=== PATIENT | male | born 1985 | race Asian ===

== ENCOUNTER 2024-10-21 02:45 | Inpatient (IN) | payer MEDICAID, OTHER ==
[~2024-10-21] VITALS: Ht 180.3 cm; Wt 91.7 kg
[~2024-10-21 02:45] MED LIST: DIVA-153 PO; PARO10TA89 PO; ROPI0.2535 PO; TRAZ-252 PO
[2024-10-21 03:27] LABS: EOSINOPHILS % (AUTO) 2.3 % (1.0-6.0); LYMPHOCYTES # (AUTO) 2.3 K/uL (1.0-4.8); LYMPHOCYTES % (AUTO) 21.5 % (22.0-44.0); MEAN CORPUSCULAR HEMOGLOBIN 25.8 pg (26.0-34.0); MEAN CORPUSCULAR HGB CONC 32.6 G/dL (31.0-37.0); MEAN CORPUSCULAR VOLUME 79 fL (80-100); MONOCYTES # (AUTO) 1.1 K/uL (0.1-1.0); MONOCYTES % (AUTO) 9.8 % (2.0-9.0); NEUTROPHILS # (AUTO) 7.1 K/uL (1.8-7.7); NEUTROPHILS % (AUTO) 65.4 % (40.0-70.0); PLATELET COUNT (AUTO) 286 K/uL (150-450); RED BLOOD CELL COUNT(AUTO) 5.43 MIL/uL (4.50-5.90); RED CELL DISTRIBUTION WIDTH 13.8 % (11.5-14.5); WHITE BLOOD COUNT (AUTO) 10.8 K/uL (4.5-11.0)
[2024-10-21 03:29] LABS: ANION GAP 8 mmol/L (8-16); CALCIUM, TOTAL 7.9 mg/dL (8.8-10.5); CARBON DIOXIDE 28 mmol/L (22-29); CHLORIDE 106 mmol/L (98-107); CREATININE 2.69 mg/dL (0.60-1.30); GLOMERULAR FILTR. RATE CALC 27 mL/min (>60); GLUCOSE,RANDOM 86 mg/dL (70-110); POTASSIUM 3.7 mmol/L (3.5-5.1); SODIUM SERUM 142 mmol/L (136-145); UREA NITROGEN, BLOOD 37 mg/dL (7-18)
[2024-10-21 03:39] LABS: TROPONIN I-HIGH SENSITIVITY 10 ng/L (<76)
[2024-10-21 04:02] LABS: ALCOHOL, BLOOD (SERUM) < 3 mg/dL (0-10)
[2024-10-21 04:18] LABS: B-TYPE NATRIURETIC PEPTIDE 125 pg/mL (0-100)
[2024-10-21 08:01] LABS: VALPROIC ACID < 3 mcg/mL (50-100)
[2024-10-21] MEDS: SODIUM CHLORIDE 0.9% 1,000 ML IV ONE (08:06)
[2024-10-21] MEDS: CloNIDine HCL 0.1 MG TABLET PO ONE (08:17)
[2024-10-21] MEDS: BUPRENORPHINE HCL/NALOXONE HCL 2-0.5 MG SUBLINGUAL TABLET SL ONE (08:18)
[2024-10-21 12:35] LABS: COVID AG,FIA SOURCE NASAL SWAB
[2024-10-21] MEDS: SODIUM CHLORIDE 0.9% 1,000 ML IV SCH (12:50)
[2024-10-21 13:21] LABS: SARS-COV2 (COVID) ANTIGEN,FIA Negative (Negative)
[2024-10-21 13:24] LABS: INFLUENZA TYPE A NEGATIVE FOR TYPE A (NEGATIVE); INFLUENZA TYPE B NEGATIVE FOR TYPE B (NEGATIVE)
[2024-10-21 14:00] LABS: APPEARANCE,URINE HAZY (CLEAR); BILIRUBIN,URINE NEGATIVE (NEGATIVE); COLOR,URINE YELLOW (YELLOW); GLUCOSE, URINE (UA) NEGATIVE (NEGATIVE); KETONES,URINE NEGATIVE (NEGATIVE); LEUKOCYTE ESTERASE ,URINE MODERATE (NEGATIVE); NITRATE,URINE NEGATIVE (NEGATIVE); OCCULT BLOOD,URINE LARGE (NEGATIVE); PROTEIN,URINE 300-600,SEE CONFIRM mg/dL (NEGATIVE); UROBILINOGEN,URINE <=1.0 mg/dL (<=1.0)
[2024-10-21 14:10] LABS: ALCOHOL, URINE DRUG SCREEN NEGATIVE (NEGATIVE); AMPHET/METH SCREEN,URINE POSITIVE (NEGATIVE); BARBITURATE SCREEN, URINE NEGATIVE (NEGATIVE); BENZODIAZEPINES SCREEN,URINE NEGATIVE (NEGATIVE); CANNABINOID SCREEN,URINE NEGATIVE (NEGATIVE); COCAINE SCREEN,URINE NEGATIVE (NEGATIVE); CREATININE,URINE RANDOM 194.5 mg/dL (30.0-125.0); METHADONE SCREEN, URINE NEGATIVE (NEGATIVE); OPIATE SCREEN,URINE NEGATIVE (NEGATIVE); PHENCYCLIDINE SCREEN,URINE NEGATIVE (NEGATIVE); SODIUM,URINE RANDOM 50 mmol/l (20-110); UREA NITROGEN,URINE RANDOM 1058 mg/dL (350-1000)
[2024-10-21] MEDS ORDERED: BISACODYL 10 MG RECTAL RECTAL SUPPOSITORY PR PRN (14:15)
[2024-10-21] MEDS ORDERED: ONDANSETRON HCL 4 MG/2 ML VIAL IVP PRN (14:15)
[2024-10-21] MEDS ORDERED: MAGNESIUM HYDROXIDE SUSPENSION 30 ML UDCUP PO PRN (14:15)
[2024-10-21 14:30] LABS: SULFOSALICYLIC ACID,URINE 3+ (Negative)
[2024-10-21 14:31] LABS: BACTERIA,URINE Moderate /HPF (None Seen); SQUAMOUS EPITHELIAL CELL,UR Moderate /LPF (None Seen)
[2024-10-21] MEDS: ACETAMINOPHEN 325 MG TABLET PO PRN (16:11)
[2024-10-21] MEDS: PARoxetine HCL 10 MG TABLET PO SCH (16:13)
[2024-10-21] MEDS: ROPINIRole HCL 0.25 MG TABLET PO SCH (16:13)
[2024-10-21] MEDS: HEPARIN SODIUM,PORCINE 5,000 UNITS/ML VIAL SQ SCH (16:22)
[2024-10-21] MEDS: TraZODone HCL 50 MG TABLET PO SCH (16:23)
[2024-10-21 20:32] VITALS: BP 143/78; PULSE 92; RESP 20; TEMP 98.3; O2SAT 100
[2024-10-21] MEDS: DOCUSATE SODIUM 100 MG CAPSULE PO SCH (21:23)
[2024-10-21] MEDS: DIVALPROEX SODIUM 500 MG ER TABLET PO SCH (21:24)
[2024-10-22 05:05] VITALS: BP 131/70; PULSE 77; RESP 20; TEMP 98.1; O2SAT 98
[2024-10-22 07:08] LABS: ANION GAP 5 mmol/L (8-16); CALCIUM, TOTAL 7.8 mg/dL (8.8-10.5); CARBON DIOXIDE 27 mmol/L (22-29); CHLORIDE 109 mmol/L (98-107); CREATININE 0.99 mg/dL (0.60-1.30); GLOMERULAR FILTR. RATE CALC > 60 mL/min (>60); GLUCOSE,RANDOM 83 mg/dL (70-110); SODIUM SERUM 141 mmol/L (136-145); UREA NITROGEN, BLOOD 27 mg/dL (7-18)
[2024-10-22 07:23] LABS: BASOPHILS % (AUTO) 0.9 % (0.0-2.0); EOSINOPHILS % (AUTO) 6.7 % (1.0-6.0); HEMATOCRIT 43.4 % (41-53); HEMOGLOBIN 13.9 g/dL (13.5-17.5); LYMPHOCYTES # (AUTO) 1.7 K/uL (1.0-4.8); LYMPHOCYTES % (AUTO) 22.5 % (22.0-44.0); MEAN CORPUSCULAR HEMOGLOBIN 25.6 pg (26.0-34.0); MEAN CORPUSCULAR HGB CONC 32.1 G/dL (31.0-37.0); MEAN CORPUSCULAR VOLUME 80 fL (80-100); MONOCYTES # (AUTO) 0.7 K/uL (0.1-1.0); MONOCYTES % (AUTO) 9.1 % (2.0-9.0); NEUTROPHILS # (AUTO) 4.5 K/uL (1.8-7.7); NEUTROPHILS % (AUTO) 60.8 % (40.0-70.0); PLATELET COUNT (AUTO) 261 K/uL (150-450); RED BLOOD CELL COUNT(AUTO) 5.44 MIL/uL (4.50-5.90); RED CELL DISTRIBUTION WIDTH 13.9 % (11.5-14.5); WHITE BLOOD COUNT (AUTO) 7.4 K/uL (4.5-11.0)
[2024-10-22] MEDS: PANTOPRAZOLE SODIUM 40 MG DR TABLET PO SCH (08:16)
[2024-10-22 09:40] VITALS: BP 148/84; PULSE 89; RESP 18; TEMP 98.6; O2SAT 100
[2024-10-22] MEDS: CefTRIAXone 1 GM/DEXTROSE 50 ML IV SCH (10:54)
[2024-10-22 15:30] VITALS: BP 148/82; PULSE 71; RESP 18; TEMP 98.6; O2SAT 100
[2024-10-22 19:25] VITALS: BP 145/93; PULSE 73; RESP 18; TEMP 98.4; O2SAT 99
[2024-10-22] MEDS: ZOLPIDEM TARTRATE 5 MG TABLET PO PRN (21:32)
[2024-10-23 04:50] VITALS: BP 120/67; PULSE 65; RESP 18; TEMP 98.2; O2SAT 98
[2024-10-23 06:14] LABS: BASOPHILS % (AUTO) 0.9 % (0.0-2.0); EOSINOPHILS % (AUTO) 2.9 % (1.0-6.0); HEMATOCRIT 38.5 % (41-53); HEMOGLOBIN 12.5 g/dL (13.5-17.5); LYMPHOCYTES # (AUTO) 1.9 K/uL (1.0-4.8); LYMPHOCYTES % (AUTO) 23.6 % (22.0-44.0); MEAN CORPUSCULAR HEMOGLOBIN 25.8 pg (26.0-34.0); MEAN CORPUSCULAR HGB CONC 32.4 G/dL (31.0-37.0); MEAN CORPUSCULAR VOLUME 80 fL (80-100); MONOCYTES # (AUTO) 0.6 K/uL (0.1-1.0); MONOCYTES % (AUTO) 7.1 % (2.0-9.0); NEUTROPHILS # (AUTO) 5.3 K/uL (1.8-7.7); NEUTROPHILS % (AUTO) 65.5 % (40.0-70.0); PLATELET COUNT (AUTO) 263 K/uL (150-450); RED BLOOD CELL COUNT(AUTO) 4.83 MIL/uL (4.50-5.90); RED CELL DISTRIBUTION WIDTH 13.7 % (11.5-14.5); WHITE BLOOD COUNT (AUTO) 8.1 K/uL (4.5-11.0)
[2024-10-23 06:20] LABS: ANION GAP 4 mmol/L (8-16); CARBON DIOXIDE 29 mmol/L (22-29); CHLORIDE 109 mmol/L (98-107); GLOMERULAR FILTR. RATE CALC > 60 mL/min (>60); GLUCOSE,RANDOM 87 mg/dL (70-110); POTASSIUM 4.5 mmol/L (3.5-5.1); SODIUM SERUM 142 mmol/L (136-145); UREA NITROGEN, BLOOD 20 mg/dL (7-18)
[2024-10-23 07:37] VITALS: BP 142/98; PULSE 84; RESP 18; TEMP 98.6; O2SAT 97
[2024-10-23] MEDS: TraZODone HCL 50 MG TABLET PO PRN (09:45)
[2024-10-23] MEDS ORDERED: CEPH-558 PO (11:02)
== END 2024-10-23 12:25 | disposition home or self-care (01) | DRG 812 ==
LOC: EMS 02:48 → EDH 09:29 → 6N 20:05
PROVIDERS: ADMIT Internal Medicine; ATTEND Internal Medicine
DX: T40.411A Poisoning by fentanyl or fentanyl analogs, accidental (unintentional), initial encounter (principal); N17.0 Acute kidney failure with tubular necrosis; I50.20 Unspecified systolic (congestive) heart failure; I11.0 Hypertensive heart disease with heart failure; T43.651A Poisoning by methamphetamines accidental (unintentional), initial encounter; N14.19 Nephropathy induced by other drugs, medicaments and biological substances; F32.9 Major depressive disorder, single episode, unspecified; R31.9 Hematuria, unspecified; N39.0 Urinary tract infection, site not specified; F11.23 Opioid dependence with withdrawal; Z20.822 Contact with and (suspected) exposure to COVID-19; N40.0 Benign prostatic hyperplasia without lower urinary tract symptoms; F15.20 Other stimulant dependence, uncomplicated; F41.1 Generalized anxiety disorder; Z87.891 Personal history of nicotine dependence; Z91.148 Patient's other noncompliance with medication regimen for other reason
CPT/HCPCS: 71045; 76770; 80048; 80164; 80307; 81001; 81002; 82570; 83880; 84300; 84484; 84540; 85025; 87077; 87086; 87186; 87804; 93005; 96360; 96361; 96372; 99285; G0480; J0696; J1644; J7030; 36415-L1; 36415-TC